=== PATIENT | male | born 1990 | race Caucasian/White ===

== ENCOUNTER 2018-02-03 02:38 | Emergency (ER) | payer OTHER ==
[2018-02-03] MEDS ORDERED: HALOPERIDOL LACTATE 5 MG/ML 1 ML VIAL ONE (02:42)
[2018-02-03] MEDS ORDERED: LORAZEPAM 2 MG/ML 1 ML VIAL ONE (02:43)
[2018-02-03 02:46] VITALS: TEMP 36.8; O2SAT 94
[2018-02-03 03:48] LABS: BLOOD UREA NITROGEN 12 mg/dl (7-18); CALCIUM 8.6 mg/dl (8.5-10.1); CARBON DIOXIDE 22 mmol/L (21-32); CREATININE 1.02 mg/dl (0.60-1.40); GLUCOSE 128 mg/dl (70-99); POTASSIUM 3.2 mmol/L (3.5-5.1); SODIUM 136 mmol/L (136-145)
[2018-02-03] MEDS ORDERED: POTASSIUM CHLORIDE 10 MEQ TABCR PO STA (04:35)
[2018-02-03 06:15] VITALS: BP 108/62; PULSE 56; O2SAT 98
--- NOTE | 2018-02-03 06:25 | EMERGENCY ROOM VISIT NOTE ---
History First contact with patient: 02:39 Chief Complaint: ALCOHOL OVERDOSE Stated Complaint: ALCOHOL Nursing Triage Summary: patient was reportedly at a bar with his and got into a verbal altercation with her resulting in police responding. patient then punched and kicked at helicopter technician car and was detained by police. patient then began vomiting in car. EMS transported patient to ED . reported to RN that patient had split six pitchers of beer with a friend and was drinking liquor. patient swearing at staff upon arrival and verbally threatening towards staff members. History of Present Illness The patient is a 27 year old male who presents to the Emergency Room with complaints of alcohol intoxication who got into an argument with his girlfriend and the police broke it up and he kicked a police car and was brought here. Patient denies fall, chest pain, dyspnea, drug use or any other medical complaints. Patient is highly agitated. He states he drank a lot of alcohol with his friends. Review of Systems An 10 system review of systems was completed with positives and pertinent negatives listed in the HPI. Past Medical/Surgical History None Social History Smoking Status: Current Every Day Smoker Alcohol Use: occasionally Drug Use: none Marital Status: in relationship Occupation Status: employed Current/Historical Medications Unable to Obtain Active Prescriptions or Reported Meds Physical Exam Vital Signs Date Time Temp Pulse Resp B/P (MAP) Pulse Ox O2 Delivery O2 Flow Rate FiO2 02/03/18 06:15 56 18 108/62 98 Room Air 02/03/18 04:37 55 20 102/47 95 Room Air 02/03/18 03:02 78 02/03/18 02:46 94 Room Air 02/03/18 02:46 36.8 57 18 131/75 95 Room Air 02/03/18 02:46 94 Room Air Physical Exam PHYSICAL EXAM: VITALS: Vitals are noted on the nurse's note and reviewed by myself. Vital signs stable. GENERAL: White male yelling and screaming at staff threatening, in no acute distress, nondiaphoretic, well-developed well-nourished. The patient is visibly intoxicated. SKIN: The skin was without obvious lacerations, abrasions, or rashes. There is no tenting of the skin. Capillary reflex less than 2 seconds. HEENT: Normocephalic, atraumatic. PERRLA. EOMI. Conjunctiva with mild injection without icterus. Tympanic membranes without erythema or effusion bilaterally no hemotympanum. External auditory canals are clear. Nares patent bilaterally. No epistaxis. Oropharynx without erythema or exudate. Uvula midline. Oral mucosal moist. No lymphadenopathy. Neck is supple without cervical spine tenderness. HEART: Regular rate and rhythm without murmurs gallops or rubs. Peripheral pulses 2+. LUNGS: Clear to auscultation bilaterally without wheezes, rales or rhonchi. ABDOMEN: Positive bowel sounds x 4. Normal tympanic percussion. Soft, nontender, without masses or organomegaly. MUSCULOSKELETAL: Gross motor function of the upper and lower extremities intact. The patient has a staggering gait. NEUROLOGIC: The patient is visibly intoxicated. Once they were more sober they were alert and oriented to person place and time. Medical Decision & Procedures Laboratory Results 02/03/18 03:14 Test 02/03/18 03:14 Anion Gap 9.0 mmol/L (3-11) Estimated GFR () 115.4 Estimated GFR (Non- 99.6 BUN/Creatinine Ratio 11.9 (10-20) Calcium Level 8.6 mg/dl (8.5-10.1) Ethyl Alcohol mg/dL 209.0 mg/dl (0-3) ED Course Prior records/ancillary studies reviewed. Triage Nursing notes reviewed. Additional history obtained from EMS. The patient's history was concerning for altered mental status and a possible alcohol overdose. Differential diagnosis: Etiologies such as alcohol intoxication, toxicologic, infection, hypoglycemia, electrolyte abnormalities, cardiac sources, intracerebral event, neurologic, as well as others were entertained. Physical examination: As above. The patient is clinically intoxicated. no trauma noted. ER treatment provided: Monitoring Once the patient settled down he passed out rather quickly. He was no longer was argumentative or threatening to the staff. Aspiration precautions The patient was frequently reassessed. Diagnostic interpretation by me: Cardiac monitoring did not reveal any evidence of dysrhythmia. The labs revealed hypokalemia. The patient's blood alcohol level was 209 mg/dL. The patient's history was reviewed once they were more coherent and their intoxication cleared. The patient states they have been in good health recently and had no medical complaints. The patient admitted to consuming alcohol. No additional concerning findings were noted. The patient complained of no symptoms to suggest assault. This appears to be consistent with an isolated overdose of alcohol. By the evaluation outlined above emergent etiologies such as trauma, infection, hypoglycemia, electrolyte abnormalities, cardiac sources, intracerebral event, neurologic,as well as others were deemed relatively unlikely. The patient was informed about the findings as listed above. The patient was counseled on the dangers of excessive alcohol use. I gave my usual and customary discussion regarding this issue. All questions were answered and the patient was pleased with the treatment. Return instructions were outlined and the patient was discharged in stable condition once their mental status improved and a safe destination was confirmed. Outpatient prescription management: None Referral: The patient was referred back to their primary care physician for follow-up in 2 to 3 days for a recheck of their current condition. Medical Decision As above Head Trauma GCS Score: 15 Medication Reconcilliation Current Medication List: was personally reviewed by me Blood Pressure Screening Patient's blood pressure: Normal blood pressure Impression Primary Impression: Alcoholic intoxication Additional Impression: Hypokalemia Departure Information Dispostion Home / Self-Care Condition GOOD Prescriptions Unable to Obtain Active Prescriptions or Reported Meds Patient Instructions My [facility] Additional Instructions Keep well-hydrated. Tylenol every 6 hours as needed for pain (Maximum 3000 mg Tylenol in 24 hr period). Follow up with family doctor and/or health services as needed. No driving for the next 24 hours. Recommend no alcohol for the next 48 hours and avoid binge drinking in the future. Return to ER sooner for chest pain, abdominal pain, worsening signs or symptoms or as needed. Problem Qualifiers Primary Impression: Alcoholic intoxication Complication of substance-induced condition: uncomplicated Qualified Codes: F10.920 - Alcohol use, unspecified with intoxication, uncomplicated
== END 2018-02-03 06:40 | disposition home or self-care (01) ==
LOC: EDBD 02:38 → C.EDA 02:39
DX: F10.129 Alcohol abuse with intoxication, unspecified (principal); E87.6 Hypokalemia; F17.210 Nicotine dependence, cigarettes, uncomplicated